=== PATIENT | female | born 1965 | race Caucasian/White ===

== ENCOUNTER 2018-03-17 18:57 | Emergency (ER) | payer OTHER ==
[~2018-03-17] VITALS: Ht 167.6 cm; Wt 77.1 kg
[2018-03-17] MEDS ORDERED: METFORMIN HCL500 M1 (19:12)
[2018-03-18] MEDS ORDERED: ZOFRAN ODT8 MG PO (04:09)
[2018-03-18] MEDS ORDERED: PEPCID40 MG PO (04:09)
== END 2018-03-18 06:36 | disposition home or self-care (01) ==
LOC: ER 18:57
DX: R10.13 Epigastric pain (principal); K29.60 Other gastritis without bleeding

== ENCOUNTER 2023-03-02 13:36 | Emergency (ER) | payer OTHER ==
[~2023-03-02] VITALS: Ht 167.6 cm; Wt 74.8 kg
[~2023-03-02 13:36] MED LIST: METFORMIN HCL500 M1; PEPCID40 MG PO; ZOFRAN ODT8 MG PO
[2023-03-02] MEDS ORDERED: ATARAX25 MG PO (14:26)
[2023-03-02] MEDS ORDERED: DOXYCYCLINE MO100 M1 PO (14:26)
[2023-03-02] MEDS ORDERED: DEXAMETHASONE4 MG PO (14:27)
[2023-03-02] MEDS ORDERED: IPRAT-ALBUT 0.5-3 ML IH (14:27)
[2023-03-02] MEDS ORDERED: CLEOCIN HCL300 MG PO (17:14)
== END 2023-03-02 17:20 | disposition home or self-care (01) ==
LOC: ER 13:36
DX: J02.9 Acute pharyngitis, unspecified (principal); E11.9 Type 2 diabetes mellitus without complications; Z79.84 Long term (current) use of oral hypoglycemic drugs; E03.9 Hypothyroidism, unspecified